=== PATIENT | male | born 1985 | race Caucasian/White ===

== ENCOUNTER 2024-11-29 03:01 | Emergency (ER) | payer SELFPAY ==
[~2024-11-29] VITALS: Ht 182.9 cm; Wt 74.8 kg
[2024-11-29 03:47] VITALS: BP 123/71; TEMP 98.4; O2SAT 98
[2024-11-29] MEDS ORDERED: AMOX/CLAVULANATE 875 MG TABLET ONE (04:22)
[2024-11-29] MEDS ORDERED: TDAP [DIPH/PERTUSSIS/TET] 0.5 ML VIAL IM ONE (04:22)
[2024-11-29] MEDS: TDAP [DIPH/PERTUSSIS/TET] 0.5 ML VIAL IM ONE (04:24)
[2024-11-29] MEDS: AMOX/CLAVULANATE 875 MG TABLET PO ONE (04:24)
[2024-11-29] MEDS ORDERED: AMOX-430 PO (04:38)
== END 2024-11-29 05:10 | disposition left against medical advice (07) ==
LOC: ER 03:09
DX: S61.451A Open bite of right hand, initial encounter (principal); Z79.899 Other long term (current) drug therapy; W55.01XA Bitten by cat, initial encounter; Y93.89 Activity, other specified; Y92.89 Other specified places as the place of occurrence of the external cause; Y99.8 Other external cause status
CPT/HCPCS: 73130-TC; 90715